=== PATIENT | female | born 1945 | race Caucasian/White ===

== ENCOUNTER → 2022-03-04 | Outpatient (CLI) | payer MEDICARE, BC | LOC: M PLARAD 12:38 | PROVIDERS: ATTEND Registered Nurse | DX: C43.72 Malignant melanoma of left lower limb, including hip (principal) | CPT/HCPCS: 78816; A9552 ==

== ENCOUNTER → 2022-11-06 | Outpatient (CLI) | payer MEDICARE, BC | LOC: M PLARAD 10:43 | PROVIDERS: ATTEND Nurse Practitioner Women's Health | DX: C43.72 Malignant melanoma of left lower limb, including hip (principal) | CPT/HCPCS: 78816; A9552 ==

== ENCOUNTER → 2023-06-09 | Outpatient (CLI) | payer MEDICARE, BC | LOC: M PLARAD 09:59 | PROVIDERS: ATTEND Nurse Practitioner Women's Health | DX: C43.72 Malignant melanoma of left lower limb, including hip (principal) | CPT/HCPCS: 78816; A9552 ==